=== PATIENT | male | born 1970 | race American Indian/Alaskan Native ===

== ENCOUNTER 2022-12-07 14:00 | Emergency (ER) | payer SELFPAY ==
[~2022-12-07] VITALS: Ht 172.7 cm; Wt 118.0 kg
[2022-12-07] MEDS ORDERED: IBUP-1986 PO (16:20)
[2022-12-07] MEDS ORDERED: DICL100G30 TOP (16:20)
[2022-12-07] MEDS ORDERED: ketorolac trometh inj. 60 MG/2 ML VIAL IM ONE (17:10)
[2022-12-07 17:24] VITALS: BP 147/64
== END 2022-12-07 17:32 | disposition home or self-care (01) ==
LOC: ER 14:02
DX: M25.462 Effusion, left knee (principal); M25.562 Pain in left knee; F17.200 Nicotine dependence, unspecified, uncomplicated; W18.41XA Slipping, tripping and stumbling without falling due to stepping on object, initial encounter; Z91.81 History of falling; Y93.89 Activity, other specified; Y92.89 Other specified places as the place of occurrence of the external cause; Y99.8 Other external cause status
CPT/HCPCS: 73564; 96372; 99284; J1885; A6449

== ENCOUNTER 2025-03-02 16:09 | Outpatient (CLI) | payer OTHER ==
[~2025-03-02 16:09] MED LIST: DICL100G59 TOP; IBUP-1986 PO
--- NOTE | 2025-03-03 06:52 | RADIOLOGY REPORT ---
CLINICAL INDICATION: PRIMARY OSTEOARTHRITIS, RIGHT KNEE TECHNIQUE: Multiplanar, multisequence MRI of the right knee was performed without contrast. Contrast: None. COMPARISON: None FINDINGS: Joint space and synovium: There is no joint effusion, popliteal cyst or synovial thickening. Bones and articular cartilage: There is a T2 hyperintense lobular lesion in the proximal tibia which may reflect a benign cyst or enchondroma. There is no evidence of acute fracture or bone marrow edema. The alignment is normal. The articular cartilage is preserved in the patellofemoral compartment. There is no significant articular cartilage loss in the medial or the lateral tibiofemoral compartment. Menisci: The medial meniscus is intact. There is a tear of the posterior horn of the lateral meniscus near the posterior root. Tendons and ligaments: The tendons in the posterior knee are intact. The extensor mechanism is intact. The anterior cruciate ligament is intact. The posterior cruciate ligament is intact. The medial collateral ligament and the lateral collateral ligament stabilizing complex are intact. Muscles: Regional muscles are preserved in bulk and signal characteristics. Other: Trace fluid noted in the deep infrapatellar bursa. Nonspecific prepatellar subcutaneous edema. IMPRESSION: 1. Tear of the posterior horn of the lateral meniscus near the posterior root in the right knee.
== END 2025-03-02 23:59 | disposition home or self-care (01) ==
LOC: MRI02 16:09
PROVIDERS: ATTEND Orthopaedic Surgery
DX: S83.281A Other tear of lateral meniscus, current injury, right knee, initial encounter (principal); M17.11 Unilateral primary osteoarthritis, right knee; M17.12 Unilateral primary osteoarthritis, left knee; M25.861 Other specified joint disorders, right knee; R60.0 Localized edema; X58.XXXA Exposure to other specified factors, initial encounter; Y93.89 Activity, other specified; Y92.89 Other specified places as the place of occurrence of the external cause; Y99.8 Other external cause status
CPT/HCPCS: 73721